=== PATIENT | male | born 1950 | race Caucasian/White ===

== ENCOUNTER → 2017-07-19 | Outpatient (CLI) | payer MEDICARE, BC | LOC: CFH 09:30 | PROVIDERS: ATTEND Otolaryngology Facial Plastic Surgery | DX: J34.2 Deviated nasal septum (principal); J34.3 Hypertrophy of nasal turbinates; J31.0 Chronic rhinitis | CPT/HCPCS: 70486 ==

== ENCOUNTER → 2017-11-16 | Outpatient (CLI) | payer MEDICARE, BC ==
[~2017-11-16] MED LIST: ATOR10TA9 PO; BENA40TA2 PO; CARV-39 PO; CRAN500C7 PO; CROM13SP5 NS; HYDR50TA3 PO; PSYL1PAC9 PO; TRAZ100T15 PO; [UNRECOGNIZED DRUG - OTHER] PO; instaflex PO; omega q plus PO
[2017-11-16 11:11] LABS: BASOPHILS # (AUTO) 0.01 x10^3/uL (0-0.1); BASOPHILS % (AUTO) 0 % (0-1); EOSINOPHILS % (AUTO) 4 % (1-7); LYMPHOCYTES # (AUTO) 1.88 x10^3/uL (1-3.4); LYMPHOCYTES % (AUTO) 24 % (22-44); MD NO; MEAN CORPUSCULAR HEMOGLOBIN 30.4 pg (27.5-34.5); MEAN CORPUSCULAR HGB CONC 33.9 g/dL (33.2-36.2); MEAN CORPUSCULAR VOLUME 89.7 fL (81-97); MEAN PLATELET VOLUME 9.1 fL (7.4-10.4); MONOCYTES # (AUTO) 0.64 x10^3/uL (0.2-0.8); MONOCYTES % (AUTO) 8 % (2-9); NEUTROPHILS # (AUTO) 5.08 x10^3/uL (1.8-6.8); NEUTROPHILS % (AUTO) 64 % (42-75); PLATELET COUNT 231 x10^3/uL (130-400); RED BLOOD COUNT 5.15 x10^6/uL (4.38-5.82); RED CELL DISTRIBUTION WIDTH 17.2 % (9.4-14.8)
[2017-11-16 11:22] LABS: ALANINE AMINOTRANSFERASE 31 U/L (12-78); ALBUMIN 3.6 g/dL (3.4-5.0); ANION GAP 4 mmol/L (5-15); CALCIUM 8.5 mg/dL (8.5-10.1); CHLORIDE 108 mmol/L (98-107); CREATININE 1.06 mg/dL (0.7-1.3)
[2017-11-16 11:24] LABS: ALKALINE PHOSPHATASE 46 U/L (45-117); BILIRUBIN,TOTAL 0.6 mg/dL (0.2-1.0)
== END | disposition home or self-care (01) ==
LOC: STAR 09:45
PROVIDERS: ATTEND Otolaryngology Facial Plastic Surgery
DX: Z01.818 Encounter for other preprocedural examination (principal); J34.2 Deviated nasal septum; J34.3 Hypertrophy of nasal turbinates; G47.33 Obstructive sleep apnea (adult) (pediatric); I25.2 Old myocardial infarction
CPT/HCPCS: 36415; 71046; 80053; 85025; 93005

== ENCOUNTER 2017-11-26 05:44 | Day surgery (SDC) | payer MEDICARE, BC ==
[~2017-11-26] VITALS: Ht 175.3 cm; Wt 112.0 kg
[2017-11-26] MEDS ORDERED: LIDOCAINE-MPF 1%, 2ML ONE (06:32)
[2017-11-26] MEDS ORDERED: LACTATED RINGERS 1,000 ML IV SCH (06:53)
[2017-11-26] MEDS ORDERED: LIDOCAINE-MPF 1%, 2ML INFIL ONE (07:00)
[2017-11-26] MEDS ORDERED: OXYMETAZOLINE NASAL SPRAY 0.05%, 15ML ONE (07:07)
[2017-11-26] MEDS ORDERED: COCAINE TOPICAL SOLN 4%, 4ML ONE (07:07)
[2017-11-26] MEDS ORDERED: MUPIROCIN OINT 2%, 22GM ONE (07:07)
[2017-11-26] MEDS ORDERED: LIDOCAINE-MPF 1%, 5ML ONE (07:07)
[2017-11-26] MEDS ORDERED: EPINEPHRINE 1 MG/ML, 1ML ONE (07:08)
[2017-11-26] MEDS ORDERED: FENTANYL PF 250 MCG/5ML ONE (07:29)
[2017-11-26] MEDS ORDERED: CEFAZOLIN 1,000 MG ONE (07:42)
[2017-11-26] MEDS ORDERED: ONDANSETRON 2MG/ML, 2ML ONE (07:42)
[2017-11-26] MEDS ORDERED: SUCCINYLCHOLINE 20 MG/ML, 10ML ONE (07:42)
[2017-11-26] MEDS ORDERED: DEXAMETHASONE 4 MG/ML, 5ML ONE (07:42)
[2017-11-26] MEDS ORDERED: PROPOFOL 10 MG/ML, 20ML ONE (07:42)
[2017-11-26] MEDS ORDERED: hydrALAzine 20 MG/ML, 1ML IV PRN (08:30)
[2017-11-26] MEDS ORDERED: LABETALOL 5MG/ML, 20ML IV PRN (08:30)
[2017-11-26] MEDS ORDERED: FENTANYL PF 100 MCG/2ML IV PRN (08:30)
[2017-11-26] MEDS ORDERED: ONDANSETRON 2MG/ML, 2ML IVPush PRN (08:30)
[2017-11-26] MEDS ORDERED: ACETAMINOPHEN 325 MG TABLET PO PRN (08:30)
[2017-11-26] MEDS ORDERED: OXYcodone 5 MG/5 ML ORAL.SOL UDC PO PRN (08:30)
[2017-11-26] MEDS ORDERED: ACETAMINOPHEN 650 MG/20.3 ML UDC ONE (09:04)
[2017-11-26] MEDS ORDERED: OXYcodone 5 MG/5 ML ORAL.SOL UDC ONE (09:04)
[2017-11-26] MEDS ORDERED: hydrALAzine 20 MG/ML, 1ML ONE (09:07)
== END 2017-11-26 14:12 ==
LOC: OUT 05:44
PROVIDERS: ATTEND Otolaryngology Facial Plastic Surgery
DX: J34.2 Deviated nasal septum (principal); J34.3 Hypertrophy of nasal turbinates
CPT/HCPCS: 30140; 30520; J0171; J0330; J0360; J0690; J1100; J2405; J2704; J3010; J3490; J7120